=== PATIENT | male | born 1965 | race Caucasian/White ===

== ENCOUNTER 2019-02-08 15:26 | Emergency (ER) | payer SELFPAY ==
[~2019-02-08] VITALS: Ht 170.2 cm; Wt 127.0 kg
[2019-02-08 15:32] VITALS: BP 148/88
[2019-02-08] MEDS ORDERED: KETOROLAC 30 MG/1 ML ONE (15:55)
[2019-02-08] MEDS ORDERED: KETOROLAC 30 MG/1 ML IM ONE (16:00)
== END 2019-02-08 16:41 | disposition home or self-care (01) ==
LOC: ED 16:35
DX: S20.212A Contusion of left front wall of thorax, initial encounter (principal); W19.XXXA Unspecified fall, initial encounter; Y93.89 Activity, other specified; Y92.89 Other specified places as the place of occurrence of the external cause; Y99.8 Other external cause status; R07.89 Other chest pain
CPT/HCPCS: 71101; 93005; 96372; 99283; J1885